=== PATIENT | male | born 1960 | race Caucasian/White ===

== ENCOUNTER → 2017-01-25 | Outpatient (CLI) | payer BC ==
[2017-01-25 09:21] LABS: HEMOGLOBIN 16.1 g/dL (14.1-18.0); LYMPH # 1.5 K/mm3 (0.7-4.5); LYMPH % 28.7 % (10-50)
[2017-01-25 10:41] LABS: PROSTATE-SPECIFIC AG SCREEEN 2.2 ng/mL (0.0-4.0)
--- NOTE | 2017-01-25 17:12 | RADIOLOGY REPORT PS360 ---
US RUQ-(ABD LTD)1ORGAN/QUAD/FU HISTORY: RUQ PAIN ORDERING PHYSICIAN: Syeda Chan MD PATIENT AGE: 56 years COMPARISON: None FINDINGS: PANCREAS:Unremarkable. No obvious mass or abnormal fluid collection. No ductal dilatation LIVER:There is diffuse hepatic steatosis. Evaluation of the liver is difficult due to patient's size and fatty infiltration. Portal vein does appear enlarged at 2 cm. The direction of blood flow within the portal vein is difficult to evaluate . RIGHT KIDNEY:Unremarkable. Normal size and echogenicity. No hydronephrosis GALLBLADDER:Sludge is present in the gallbladder. No definite stones apparent. Gallbladder evaluation is somewhat difficult due to patient's size and fatty liver. No biliary dilatation. IMPRESSION: Limited study due to patient's body habitus. 1. Hepatic steatosis 2. Gallbladder sludge. 3. Prominent portal vein at nearly 2 cm.
[2017-01-26 09:38] LABS: Folate (Folic Acid) >20.0 ng/mL (>3.0); Vitamin B12 541 pg/mL (211-946); Vitamin D, 25-Hydroxy 43.9 ng/mL (30.0-100.0)
== END ==
LOC: LAB 08:02 → RAD 08:02
PROVIDERS: Family Medicine
DX: R10.11 Right upper quadrant pain (principal); R53.83 Other fatigue; Z12.5 Encounter for screening for malignant neoplasm of prostate
CPT/HCPCS: G0103